=== PATIENT | male | born 1965 | race Caucasian/White ===

== ENCOUNTER 2019-01-30 13:49 | Inpatient (IN) | payer OTHER ==
[2019-01-30 14:12] VITALS: BMI 21.7
--- NOTE | 2019-01-30 17:32 | HP ---
COWS - Scale Resting Pulse: 0= [place] 80 or Below Sweatin= Chills/Flushing Restless Observation: 0= Sits Still Pupil Size: 0= Normal to Room Light Bone or Joint Aches: 2= Severe Diffuse Aches Runny Nose/ Eye Tearin= Runny Nose/Eyes GI Upset > 30mins: 2= Nausea/Diarrhea Tremor Observation: 1= Tremor [place], Not Seen Yawning Observation: 0= None Anxiety or Irritability: 1=Feels Anxious/Irritable Goose Flesh Skin: 0=Smooth Skin COWS Score: 9 CIWA Score Nausea/Vomitin-Mild Nausea/No Vomiting Muscle Tremors: 1-None Visible, but [place] Anxiety: 1-Mildly Anxious Agitation: 0-Normal Activity Paroxysmal Sweats: No Perspiration Orientation: 0-Oriented Tacttile Disturbances: 0-None Auditory Disturbances: 0-None Visual Disturbances: 0-None Headache: 2-Mild CIWA-Ar Total Score: 5 - Admission Criteria OASAS Guidelines: Admission for Medically Managed Detox: Requires at least one of the followin. CIWA greater than 12 2. Seizures within the past 24 hours 3. Delirium tremens within the past 24 hours 4. Hallucinations within the past 24 hours 5. Acute intervention needed for co occurring medical disorder 6. Acute intervention needed for co occurring psychiatric disorder 7. Severe withdrawal that cannot be handled at a lower level of care (continued vomiting, continued diarrhea, abnormal vital signs) requiring intravenous medication and/or fluids 8. Admission ROS [facility] Allergies/Adverse Reactions: Allergies Allergy/AdvReac Type Severity Reaction Status Date / Time No Known Allergies Allergy Verified 01/30/19 14:05 History of Present Illness: pt here requesting detox from etoh and heroin use , claims 4-5 bags heroin daily , + OD "a long time ago , "most recent detox @ [facility] 2 weeks ago and 3-4 x 16 oz beer daily ,deies seizures, blackouts ot tremors . tobacco : 1 ppd PMHX /PSHX : denies PSych : denies Exam Limitations: No Limitations - Ebola screening Have you traveled outside of the country in the last 21 days: No (N) Have you had contact with anyone from an Ebola affected area: No Do you have a fever: No - Review of Systems Constitutional: Loss of Appetite EENT: reports: Other (bifocals) Respiratory: reports: No Symptoms reported Cardiac: reports: No Symptoms Reported GI: reports: Diarrhea, Nausea, Poor Appetite : reports: No Symptoms Reported Musculoskeletal: reports: Other (bodyaches) Integumentary: reports: No Symptoms Reported Neuro: reports: See HPI, Headache Endocrine: reports: No Symptoms Reported Hematology: reports: No Symptoms Reported Psychiatric: reports: Orientated x3, Anxious Patient History - Smoking Cessation Smoking history: Current every day smoker Have you smoked in the past 12 months: Yes Hx Chewing Tobacco Use: No Initiated information on smoking cessation: Yes 'Breaking Loose' booklet given: 01/30/19 - Substances abused Heroin Substance route: Inhalation Frequency: Daily Amount used: 4-5 bags Age of first use: 28 Date of last use: 01/29/19 Alcohol Substance route: Oral Frequency: 3-6 times per week Amount used: 3-4 16 oz beer Age of first use: 53 Date of last use: 01/29/19 Admission Physical Exam BHS - Vital Signs Vital Signs: Vital Signs - 24 hr 01/30/19 14:05 Temperature 98.6 F Pulse Rate 80 Respiratory 18 Rate Blood Pressure 126/78 - Physical General Appearance: Yes: Anxious HEENTM: Yes: EOMI, Normocephalic, Normal Voice Respiratory: Yes: Chest Non-Tender, Lungs Clear, Normal Breath Sounds, No Respiratory Distress, No Accessory Muscle Use Neck: Yes: Trachea in good position Cardiology: Yes: Regular Rhythm, Regular Rate, S1, S2 Abdominal: Yes: Non Tender, Soft Musculoskeletal: Yes: Gait Steady Extremities: Yes: Normal Inspection, Non-Tender Neurological: Yes: Fully Oriented, Alert, Motor Strength 5/5, Normal Mood/Affect Integumentary: Yes: Warm - Diagnostic (1) Opioid use Current Visit: Yes Status: Acute Breathalyzer - Breathalyzer Breathalyzer: 0 Urine Drug Screen - Test Device Lot number: [id number] Expiration date: 09/27/20 - Control Is test valid?: Yes - Results Drug screen NEGATIVE: No Urine drug screen results: MOP-Opiates, BZO-Benzodiazepines Inpatient Rehab Admission - Rehab Decision to Admit Inpatient rehab admission?: No
[2019-01-30] MEDS ORDERED: NICOTINE POLACRILEX 2 MG GUM BUC PRN (17:51)
[2019-01-30] MEDS ORDERED: METHOCARBAMOL 500 MG TABLET PO PRN (17:51)
[2019-01-30] MEDS ORDERED: MAGNESIUM CITRATE 300 ML BOTTLE PO PRN (17:51)
[2019-01-30] MEDS ORDERED: MAG HYDROX/AL HYDROX/SIMETH 30 ML UNIT-DOSE CUP PO PRN (17:51)
[2019-01-30] MEDS ORDERED: MAGNESIUM HYDROX 2400MG/30ML ORAL SUSPENSION 30 ML CUP PO PRN (17:51)
[2019-01-30] MEDS ORDERED: BISMUTH SUBSALICYLATE 524 MG/30 ML UD PO PRN (17:51)
[2019-01-30] MEDS ORDERED: hydrOXYzine PAMOATE 25 MG CAPSULE (FP) PO PRN (17:51)
[2019-01-30] MEDS ORDERED: MENTHOL/PHENOL 1 EACH UD MM PRN (17:51)
[2019-01-30] MEDS ORDERED: ACETAMINOPHEN 325 MG TABLET (FP) PO PRN ×2 (17:51)
[2019-01-30] MEDS ORDERED: IBUPROFEN 400 MG TABLET (FP) PO PRN (17:51)
[2019-01-30] MEDS ORDERED: cloNIDine HCL 0.1 MG TABLET PO PRN (18:10)
[2019-01-30] MEDS ORDERED: clonazePAM 0.5 MG TABLET PO PRN (18:10)
[2019-01-30] MEDS ORDERED: METHADONE HCL 10 MG TABLET (FOR DETOX USE ONLY) PO ONE (18:20)
[2019-01-30] MEDS: THIAMINE HCL 100 MG TABLET (FP) PO SCH (22:14)
[2019-01-30] MEDS: MELATONIN 5 MG TABLETS PO PRN (22:15)
[2019-01-31] MEDS ORDERED: METHADONE HCL 5 MG TABLET (FOR DETOX USE ONLY) PO ONE (10:00)
--- NOTE | 2019-01-31 10:20 | PN ---
BHS COWS - Scale Resting Pulse: 1= [place] 81-100 Sweatin= No chills or Flushing Restless Observation: 1= Difficult to Sit Still Pupil Size: 1= Pupils >than Normal Bone or Joint Aches: 2= Severe Diffuse Aches Runny Nose/ Eye Tearin= Nasal Congestion GI Upset > 30mins: 2= Nausea/Diarrhea Tremor Observation of Outstretched Hands: 2= Slight Tremor Visible Yawning Observation: 1= 1-2x During Session Anxiety or Irritability: 2=Irritable/Anxious Goose Flesh Skin: 0=Smooth Skin COWS Score: 13 S Progress Note (SOAP) Subjective: alert,irritable,anxious,interrupted sleep,pain in the body and back Objective: 01/31/19 10:18 Vital Signs Temperature 98.3 F 01/31/19 09:19 Pulse Rate 82 01/31/19 09:19 Respiratory Rate 18 01/31/19 09:19 Blood Pressure 102/62 01/31/19 09:19 O2 Sat by Pulse Oximetry (%) 01/31/19 10:19 labs pending Assessment: 01/31/19 10:19 withdrawal symptom Plan: continue methadone regimen
[2019-01-31] MEDS: NICOTINE 14 MG/24 HOURS TOPICAL PATCH TD SCH (10:22)
[2019-01-31] MEDS: PRENATAL VITAMINS W/ FOLIC ACID TABLET (FP) PO SCH (10:22)
--- NOTE | 2019-01-31 10:36 | EKG ---
Test Reason : Blood Pressure : / mmHG Vent. Rate : 061 BPM Atrial Rate : 061 BPM P-R Int : 132 ms QRS Dur : 092 ms QT Int : 412 ms P-R-T Axes : 078 096 065 degrees QTc Int : 414 ms NORMAL SINUS RHYTHM RIGHTWARD AXIS BORDERLINE ECG NO PREVIOUS ECGS AVAILABLE Confirmed by MONE SEGOVIA, PAULINO ([id number]) on 01/31/2019 10:35:53 AM Referred By: Confirmed By:PAULINO SHORE MD
[2019-01-31 10:37] LABS: HEMATOCRIT 53.7 % (35.4-49); HEMOGLOBIN 17.7 GM/dL (11.7-16.9); MCH 28.9 pg (25.7-33.7); MCHC 32.9 g/dl (32.0-35.9); MEAN CELL VOLUME 87.8 fl (80-96); MEAN PLT VOLUME 9.6 fl (7.5-11.1); PLATELET COUNT 198 K/MM3 (134-434); RBC 6.12 M/mm3 (4.00-5.60); RDW 14.5 % (11.9-15.9)
[2019-01-31 10:49] LABS: ALBUMIN 3.5 g/dl (3.4-5.0); BILIRUBIN,TOTAL 1.1 mg/dL (0.2-1); BLOOD UREA NITROGEN 16.6 mg/dL (7-18); CALCIUM 9.7 mg/dL (8.5-10.1); CREATININE 1.1 mg/dL (0.55-1.3); POTASSIUM 4.9 mmol/L (3.5-5.1); TOT PROT 6.4 g/dl (6.4-8.2)
[2019-01-31] MEDS: MELATONIN 5 MG TABLETS PO PRN (22:15)
[2019-01-31] MEDS: THIAMINE HCL 100 MG TABLET (FP) PO SCH (22:15)
[2019-02-01] MEDS: PRENATAL VITAMINS W/ FOLIC ACID TABLET (FP) PO SCH (09:55)
[2019-02-01] MEDS: NICOTINE 14 MG/24 HOURS TOPICAL PATCH TD SCH (09:55)
[2019-02-01] MEDS ORDERED: METHADONE HCL 10 MG TABLET (FOR DETOX USE ONLY) PO ONE (10:00)
--- NOTE | 2019-02-01 12:05 | PN ---
BHS COWS - Scale Resting Pulse: 0= [place] 80 or Below Sweatin= No chills or Flushing Restless Observation: 1= Difficult to Sit Still Pupil Size: 1= Pupils >than Normal Bone or Joint Aches: 1= Mild Discomfort Runny Nose/ Eye Tearin= Nasal Congestion GI Upset > 30mins: 1= Stomach Cramp Tremor Observation of Outstretched Hands: 1= Tremor Johnson, Not Seen Yawning Observation: 0= None Anxiety or Irritability: 1=Feels Anxious/Irritable Goose Flesh Skin: 0=Smooth Skin COWS Score: 7 BHS Progress Note (SOAP) Subjective: alert,irritable,anxious,interrupted sleep,pain in the body Objective: 02/01/19 12:07 Vital Signs Temperature 96.9 F L 02/01/19 09:34 Pulse Rate 65 02/01/19 09:34 Respiratory Rate 16 02/01/19 09:34 Blood Pressure 111/66 02/01/19 09:34 O2 Sat by Pulse Oximetry (%) Assessment: 02/01/19 12:07 withdrawal symptom Plan: continue detox methadone regimen,discharge in am
[2019-02-01] MEDS: THIAMINE HCL 100 MG TABLET (FP) PO SCH (22:52)
[2019-02-01] MEDS: MELATONIN 5 MG TABLETS PO PRN (23:04)
[2019-02-02] MEDS ORDERED: METHADONE HCL 5 MG TABLET (FOR DETOX USE ONLY) PO ONE (06:00)
--- NOTE | 2019-02-02 08:38 | DS ---
[facility] Detox Discharge Summary Admission Date: 01/30/19 Discharge Date: 02/02/19 - History Present History: Opioid Dependence - Physical Exam Results Vital Signs: Vital Signs Temperature 98.1 F 02/02/19 05:57 Pulse Rate 59 L 02/02/19 05:57 Respiratory Rate 18 02/02/19 05:57 Blood Pressure 102/58 L 02/02/19 05:57 O2 Sat by Pulse Oximetry (%) Pertinent Admission Physical Exam Findings: pt arrived in withdrawals Vital Signs Temperature 98.1 F 02/02/19 05:57 Pulse Rate 59 L 02/02/19 05:57 Respiratory Rate 18 02/02/19 05:57 Blood Pressure 102/58 L 02/02/19 05:57 O2 Sat by Pulse Oximetry (%) Laboratory Tests 01/31/19 01/31/19 01/31/19 08:00 08:00 08:00 WBC 5.0 RBC 6.12 H Hgb 17.7 H Hct 53.7 H MCV 87.8 MCH 28.9 MCHC 32.9 RDW 14.5 Plt Count 198 MPV 9.6 Sodium 141 Potassium 4.9 Chloride 108 H Carbon Dioxide 28 Anion Gap 5 L BUN 16.6 Creatinine 1.1 Est GFR (CKD-EPI)AfAm 87.74 Est GFR (CKD-EPI)NonAf 75.70 Random Glucose 83 Calcium 9.7 Total Bilirubin 1.1 H AST 23 ALT 37 Alkaline Phosphatase 90 Total Protein 6.4 Albumin 3.5 RPR Titer Nonreactive pt is aaox3 ambulating no acute distress no s/s of withdrawals - Treatment Hospital Course: Detox Protocol Followed, Detoxed Safely, Responded well, Discharged Condition Good, Rehab Referral Accepted Patient has Accepted a Rehab Referral to: pt referred to inpatient rehab - Medication Discharge Medications: Ambulatory Orders NK [No Known Home Medication] 01/30/19 - Diagnosis (1) Opioid dependence with withdrawal Current Visit: Yes Status: Chronic - AMA Did Patient Leave Against Medical Advice: No
[2019-02-02] MEDS: NICOTINE 14 MG/24 HOURS TOPICAL PATCH TD SCH (10:19)
[2019-02-02] MEDS: PRENATAL VITAMINS W/ FOLIC ACID TABLET (FP) PO SCH (10:19)
[2019-02-02 13:22] VITALS: PULSE 62
[2019-02-02 16:59] VITALS: BP 135/78; TEMP 98.6
== END 2019-02-02 17:41 | disposition other institution (70) | DRG 773 ==
LOC: EDBD → YASAS 13:49 → Y6N 18:05
PROVIDERS: ADMIT Allergy & Immunology; ATTEND Allergy & Immunology
PROC: HZ2ZZZZ Detoxification Services for Substance Abuse Treatment (ICD-10-PCS; principal; 2019-01-30)
DX: F11.23 Opioid dependence with withdrawal (principal); F10.230 Alcohol dependence with withdrawal, uncomplicated; F17.210 Nicotine dependence, cigarettes, uncomplicated
CPT/HCPCS: 36415; 80053; 85027; 86593; 93005; 93010

== ENCOUNTER 2019-02-02 18:22 | Inpatient (IN) | payer OTHER ==
--- NOTE | 2019-02-02 11:33 | HP ---
[facility] Rehab Assess/Revision - Admission History Admitted to Rehab from: [facility] - Findings Detox History & Physical reviewed: Yes Concur with findings: Yes Inpatient Rehab Admission - Rehab Decision to Admit Inpatient rehab admission?: Yes - Initial Determination Are CD services needed?: Yes Free of communicable disease: Yes Not in need of hospitalization: Yes - Rehab Admission Criteria Previous failed treatment: Yes Poor recovery environment: Yes Comorbidities: Yes Lacks judgement: Yes Patient is meeting Inpatient Rehab admission criteria:: Yes
[~2019-02-02 18:22] MED LIST: ACETAMINOPHEN 325 MG TABLET (FP) PO PRN; IBUPROFEN 400 MG TABLET (FP) PO PRN; LOPERAMIDE HCL 2 MG CAPSULE PO PRN; MAG HYDROX/AL HYDROX/SIMETH 30 ML UNIT-DOSE CUP PO PRN; MAGNESIUM CITRATE 300 ML BOTTLE PO PRN; MAGNESIUM HYDROX 2400MG/30ML ORAL SUSPENSION 30 ML CUP PO PRN; MENTHOL/PHENOL 1 EACH UD MM PRN; NICOTINE POLACRILEX 4 MG GUM BUC PRN; P-EPHED 60MG/TRIPROLIDI 2.5MG TABLET PO PRN; guaiFENesin 200 MG/10 ML 10 ML UNIT-DOSE CUPS PO PRN
[2019-02-02] MEDS: THIAMINE HCL 100 MG TABLET (FP) PO SCH (21:39)
[2019-02-02] MEDS: MELATONIN 5 MG TABLETS PO PRN (21:39)
[2019-02-03] MEDS: PRENATAL VITAMINS W/ FOLIC ACID TABLET (FP) PO SCH (10:28)
[2019-02-03] MEDS: NICOTINE 21 MG/24 HOURS TOPICAL PATCH TD SCH (10:28)
[2019-02-03] MEDS: THIAMINE HCL 100 MG TABLET (FP) PO SCH (21:23)
[2019-02-03] MEDS: MELATONIN 5 MG TABLETS PO PRN (21:23)
[2019-02-04] MEDS: PRENATAL VITAMINS W/ FOLIC ACID TABLET (FP) PO SCH (10:21)
[2019-02-04] MEDS: NICOTINE 21 MG/24 HOURS TOPICAL PATCH TD SCH (10:22)
[2019-02-04] MEDS: MELATONIN 5 MG TABLETS PO PRN (21:19)
[2019-02-04] MEDS: THIAMINE HCL 100 MG TABLET (FP) PO SCH (21:19)
[2019-02-05] MEDS: PRENATAL VITAMINS W/ FOLIC ACID TABLET (FP) PO SCH (10:07)
[2019-02-05] MEDS: NICOTINE 21 MG/24 HOURS TOPICAL PATCH TD SCH (10:08)
--- NOTE | 2019-02-05 13:47 | PN ---
S Progress Note Note: pt is a 53 y/o male with a hx of RUCHI admitted to rehab from [address] [place] [address]. Vital Signs - 24 hr 02/05/19 02/05/19 03:30 07:17 Temperature 98.1 F Pulse Rate 81 Respiratory 18 18 Rate Blood Pressure 129/75 Alert o x 3 nad oob ambulating with steady gait and visible on the unit. A/P new rehab pt s/p detox Maintain safety continue rehab
[2019-02-05] MEDS: MELATONIN 5 MG TABLETS PO PRN (21:27)
[2019-02-05] MEDS: THIAMINE HCL 100 MG TABLET (FP) PO SCH (21:27)
[2019-02-06] MEDS: PRENATAL VITAMINS W/ FOLIC ACID TABLET (FP) PO SCH (10:29)
[2019-02-06] MEDS: NICOTINE 21 MG/24 HOURS TOPICAL PATCH TD SCH (10:29)
[2019-02-06] MEDS: THIAMINE HCL 100 MG TABLET (FP) PO SCH (21:29)
[2019-02-06] MEDS: MELATONIN 5 MG TABLETS PO PRN (21:29)
[2019-02-06] MEDS: hydrOXYzine PAMOATE 50 MG CAPSULE (FP) PO PRN (21:29)
[2019-02-07] MEDS: PRENATAL VITAMINS W/ FOLIC ACID TABLET (FP) PO SCH (10:48)
[2019-02-07] MEDS: NICOTINE 21 MG/24 HOURS TOPICAL PATCH TD SCH (10:48)
[2019-02-07] MEDS: MELATONIN 5 MG TABLETS PO PRN (21:31)
[2019-02-07] MEDS: THIAMINE HCL 100 MG TABLET (FP) PO SCH (21:31)
[2019-02-07] MEDS: hydrOXYzine PAMOATE 50 MG CAPSULE (FP) PO PRN (21:31)
[2019-02-08] MEDS: NICOTINE 21 MG/24 HOURS TOPICAL PATCH TD SCH (10:56)
[2019-02-08] MEDS: PRENATAL VITAMINS W/ FOLIC ACID TABLET (FP) PO SCH (10:56)
[2019-02-08] MEDS: hydrOXYzine PAMOATE 50 MG CAPSULE (FP) PO PRN (21:46)
[2019-02-08] MEDS: MELATONIN 5 MG TABLETS PO PRN (21:46)
[2019-02-08] MEDS: THIAMINE HCL 100 MG TABLET (FP) PO SCH (21:46)
[2019-02-09] MEDS: NICOTINE 21 MG/24 HOURS TOPICAL PATCH TD SCH (10:35)
[2019-02-09] MEDS: PRENATAL VITAMINS W/ FOLIC ACID TABLET (FP) PO SCH (10:35)
[2019-02-09] MEDS: THIAMINE HCL 100 MG TABLET (FP) PO SCH (21:28)
[2019-02-09] MEDS: hydrOXYzine PAMOATE 50 MG CAPSULE (FP) PO PRN (21:30)
[2019-02-09] MEDS: MELATONIN 5 MG TABLETS PO PRN (21:30)
[2019-02-10] MEDS: NICOTINE 21 MG/24 HOURS TOPICAL PATCH TD SCH (09:48)
[2019-02-10] MEDS: PRENATAL VITAMINS W/ FOLIC ACID TABLET (FP) PO SCH (09:48)
[2019-02-10] MEDS: THIAMINE HCL 100 MG TABLET (FP) PO SCH (23:21)
[2019-02-11] MEDS: NICOTINE 21 MG/24 HOURS TOPICAL PATCH TD SCH (10:04)
[2019-02-11] MEDS: PRENATAL VITAMINS W/ FOLIC ACID TABLET (FP) PO SCH (10:04)
[2019-02-11] MEDS: MELATONIN 5 MG TABLETS PO PRN (21:32)
[2019-02-11] MEDS: THIAMINE HCL 100 MG TABLET (FP) PO SCH (21:32)
[2019-02-11] MEDS: hydrOXYzine PAMOATE 50 MG CAPSULE (FP) PO PRN (21:32)
[2019-02-12] MEDS: NICOTINE 21 MG/24 HOURS TOPICAL PATCH TD SCH (10:38)
[2019-02-12] MEDS: PRENATAL VITAMINS W/ FOLIC ACID TABLET (FP) PO SCH (10:38)
[2019-02-12] MEDS: hydrOXYzine PAMOATE 50 MG CAPSULE (FP) PO PRN (21:19)
[2019-02-12] MEDS: MELATONIN 5 MG TABLETS PO PRN (21:19)
[2019-02-12] MEDS: THIAMINE HCL 100 MG TABLET (FP) PO SCH (21:19)
[2019-02-13] MEDS: PRENATAL VITAMINS W/ FOLIC ACID TABLET (FP) PO SCH (10:18)
[2019-02-13] MEDS: NICOTINE 21 MG/24 HOURS TOPICAL PATCH TD SCH (10:18)
[2019-02-13] MEDS: THIAMINE HCL 100 MG TABLET (FP) PO SCH (21:29)
[2019-02-13] MEDS: MELATONIN 5 MG TABLETS PO PRN (21:29)
[2019-02-13] MEDS: hydrOXYzine PAMOATE 50 MG CAPSULE (FP) PO PRN (21:29)
[2019-02-14] MEDS: PRENATAL VITAMINS W/ FOLIC ACID TABLET (FP) PO SCH (10:29)
[2019-02-14] MEDS: NICOTINE 21 MG/24 HOURS TOPICAL PATCH TD SCH (10:30)
[2019-02-14] MEDS: MELATONIN 5 MG TABLETS PO PRN (21:32)
[2019-02-14] MEDS: THIAMINE HCL 100 MG TABLET (FP) PO SCH (21:32)
[2019-02-14] MEDS: hydrOXYzine PAMOATE 50 MG CAPSULE (FP) PO PRN (21:33)
[2019-02-15] MEDS ORDERED: COLLOIDAL OATMEAL 1 BAR EACH TP PRN (10:26)
[2019-02-15] MEDS: NICOTINE 21 MG/24 HOURS TOPICAL PATCH TD SCH (10:43)
[2019-02-15] MEDS: PRENATAL VITAMINS W/ FOLIC ACID TABLET (FP) PO SCH (10:43)
[2019-02-15] MEDS: MINERAL OIL/PETROLAT/WATER TOPICAL CREAM 113 GM JAR TP SCH (11:39)
[2019-02-15] MEDS: THIAMINE HCL 100 MG TABLET (FP) PO SCH (21:28)
[2019-02-15] MEDS: MELATONIN 5 MG TABLETS PO PRN (21:28)
[2019-02-15] MEDS: hydrOXYzine PAMOATE 50 MG CAPSULE (FP) PO PRN (21:29)
[2019-02-16] MEDS: NICOTINE 21 MG/24 HOURS TOPICAL PATCH TD SCH (10:20)
[2019-02-16] MEDS: PRENATAL VITAMINS W/ FOLIC ACID TABLET (FP) PO SCH (10:20)
[2019-02-16] MEDS: MINERAL OIL/PETROLAT/WATER TOPICAL CREAM 113 GM JAR TP SCH (10:21)
[2019-02-16] MEDS: hydrOXYzine PAMOATE 50 MG CAPSULE (FP) PO PRN (21:29)
[2019-02-16] MEDS: THIAMINE HCL 100 MG TABLET (FP) PO SCH (21:29)
[2019-02-17] MEDS: NICOTINE 21 MG/24 HOURS TOPICAL PATCH TD SCH (10:38)
[2019-02-17] MEDS: PRENATAL VITAMINS W/ FOLIC ACID TABLET (FP) PO SCH (10:38)
[2019-02-17] MEDS: MINERAL OIL/PETROLAT/WATER TOPICAL CREAM 113 GM JAR TP SCH (10:39)
[2019-02-17] MEDS: THIAMINE HCL 100 MG TABLET (FP) PO SCH (21:27)
[2019-02-18] MEDS: MINERAL OIL/PETROLAT/WATER TOPICAL CREAM 113 GM JAR TP SCH (10:00)
[2019-02-18] MEDS: NICOTINE 21 MG/24 HOURS TOPICAL PATCH TD SCH (10:00)
[2019-02-18] MEDS: PRENATAL VITAMINS W/ FOLIC ACID TABLET (FP) PO SCH (10:01)
[2019-02-18] MEDS: THIAMINE HCL 100 MG TABLET (FP) PO SCH (22:09)
[2019-02-19] MEDS: PRENATAL VITAMINS W/ FOLIC ACID TABLET (FP) PO SCH (10:26)
[2019-02-19] MEDS: NICOTINE 21 MG/24 HOURS TOPICAL PATCH TD SCH (10:26)
[2019-02-19] MEDS: MINERAL OIL/PETROLAT/WATER TOPICAL CREAM 113 GM JAR TP SCH (10:27)
--- NOTE | 2019-02-19 14:56 | DS ---
[facility] Rehab Discharge Summary - [facility] Rehab Discharge Summary Admission Date: 02/02/19 Discharge Date: 02/19/19 - History Present History: Alcohol dependence, Opioid dependence - Discharge Physical Exam Vital Signs: Vital Signs Temperature 97.9 F 02/19/19 07:29 Pulse Rate 81 02/19/19 07:29 Respiratory Rate 18 02/19/19 07:29 Blood Pressure 139/78 02/19/19 07:29 O2 Sat by Pulse Oximetry (%) Ambulatory Orders NK [No Known Home Medication] 01/30/19 Pertinent Admission Physical Exam Findings: Patient admitted to detox for etoh and heroin use on 01/30/19. Admitted to rehab on 02/02/19 and scheduled for completion 02/20/19. Has hx of sniffing 4- 5 bags heroin daily. + 1 overdose years ago. . tobacco : 1 ppd PMHX /PSHX : denies PSych : denies - Treatment Discharge Condition: Outpatient referral accepted Hospital Course: Patient completes rehab tomorrow, 02/20/19 for alcohol and opiod dependence. Patient states he accomplished all rehab goals, is able to identify triggers and positive coping mechanisms. Patient is medically stable at this time and denies SI/HI. Aftercare arranged for [facility] and he is to attend AA/NA group meetings to help maintain sobriety. Vital Signs Temperature 97.9 F 02/19/19 07:29 Pulse Rate 81 02/19/19 07:29 Respiratory Rate 18 02/19/19 07:29 Blood Pressure 139/78 02/19/19 07:29 O2 Sat by Pulse Oximetry (%) ROS: denies anxiety, restlessness, opiod/etoh cravings, sweating and chills. PE: alert and oriented x 3 skin warm and dry in nad ext no tremors amb ad lolis denies si/hi A/P: Opiod/ETOH dependence Patient for discharge 02/20/19 - Medication Discharge Medications: Ambulatory Orders NK [No Known Home Medication] 01/30/19 - Medication-Assisted Treatment (MAT) Medication-Assisted Treatment (MAT): No - Discharge Instructions Diet, activity, other medical instructions: Diet: reg as tolerated Activity: as tolerated Other medical instructions: follow up with pcp as recommended. - Follow-up Referral Minutes to complete discharge: 30 - AMA Did Patient Leave Against Medical Advice: No
[2019-02-19] MEDS: THIAMINE HCL 100 MG TABLET (FP) PO SCH (21:15)
[2019-02-20 06:50] VITALS: BP 118/80; PULSE 92; TEMP 98.1
== END 2019-02-20 09:21 | disposition home or self-care (01) | DRG 772 ==
LOC: YASAS 18:22 → Y5N 18:23
PROVIDERS: ADMIT Neuromusculoskeletal Medicine & OMM; ATTEND Neuromusculoskeletal Medicine & OMM
PROC: HZ42ZZZ Group Counseling for Substance Abuse Treatment, Cognitive-Behavioral (ICD-10-PCS; principal; 2019-02-02)
DX: F11.20 Opioid dependence, uncomplicated (principal); F10.20 Alcohol dependence, uncomplicated; F17.210 Nicotine dependence, cigarettes, uncomplicated

== ENCOUNTER 2019-04-26 14:48 | Inpatient (IN) | payer OTHER ==
--- NOTE | 2019-04-26 16:52 | BHS.RME ---
Substance Use & Tx History - Last Treatment Date of last treatment: 01/2019 Where was last treatment: Rehab Physical/Psych/Mental Status - Behavior General Behavior: Increased activity (restlessness, agitation) - Cooperativeness Cooperativeness: Cooperative - Thinking Thought Processes: Logical - Physical Health Problems Is patient presently having any pain?: Yes (bodyaches ) Does patient presently have any injuries (include location): No Does patient currently have a fever: No COWS - Scale Resting Pulse: 1= [place] 81-100 Sweatin= Chills/Flushing Restless Observation: 3= Extraneous Movement Pupil Size: 1= Pupils >than Normal Bone or Joint Aches: 2= Severe Diffuse Aches Runny Nose/ Eye Tearin= None GI Upset > 30mins: 3= Vomiting/Diarrhea Tremor Observation: 0= None Yawning Observation: 0= None Anxiety or Irritability: 2=Irritable/Anxious Goose Flesh Skin: 0=Smooth Skin COWS Score: 13 CIWA Nausea/Vomitin Muscle Tremors: 1-None Visible, but [place] Anxiety: 4-Mod. Anxious/Guarded Agitation: 4-Moderately Restless Paroxysmal Sweats: 2 Orientation: 0-Oriented Tacttile Disturbances: 0-None Auditory Disturbances: 0-None Visual Disturbances: 0-None Headache: 0-None Present CIWA-Ar Total Score: 13
--- NOTE | 2019-04-26 17:05 | HP ---
COWS - Scale Resting Pulse: 1= [place] 81-100 Sweatin= Chills/Flushing Restless Observation: 3= Extraneous Movement Pupil Size: 1= Pupils >than Normal Bone or Joint Aches: 2= Severe Diffuse Aches Runny Nose/ Eye Tearin= None GI Upset > 30mins: 3= Vomiting/Diarrhea Tremor Observation: 0= None Yawning Observation: 0= None Anxiety or Irritability: 2=Irritable/Anxious Goose Flesh Skin: 0=Smooth Skin COWS Score: 13 CIWA Score Nausea/Vomitin Muscle Tremors: 1-None Visible, but [place] Anxiety: 4-Mod. Anxious/Guarded Agitation: 4-Moderately Restless Paroxysmal Sweats: 2 Orientation: 0-Oriented Tacttile Disturbances: 0-None Auditory Disturbances: 0-None Visual Disturbances: 0-None Headache: 0-None Present CIWA-Ar Total Score: 13 - Admission Criteria OASAS Guidelines: Admission for Medically Managed Detox: Requires at least one of the followin. CIWA greater than 12 2. Seizures within the past 24 hours 3. Delirium tremens within the past 24 hours 4. Hallucinations within the past 24 hours 5. Acute intervention needed for co occurring medical disorder 6. Acute intervention needed for co occurring psychiatric disorder 7. Severe withdrawal that cannot be handled at a lower level of care (continued vomiting, continued diarrhea, abnormal vital signs) requiring intravenous medication and/or fluids 8. Admitting History and Physical - Smoking History Smoking history: Current every day smoker Have you smoked in the past 12 months: Yes Aproximately how many cigarettes per day: 20 Admission [facility] Allergies/Adverse Reactions: Allergies Allergy/AdvReac Type Severity Reaction Status Date / Time No Known Allergies Allergy Verified 04/26/19 17:19 History of Present Illness: pt here requesting detox from etoh and heroin use , claims 7-9 bags heroin daily, and 3-4 x 16 oz beer daily ,denies seizures, blackouts or tremors . tobacco : 1 ppd PMHX /PSHX : denies PSych : denies Exam Limitations: Clinical Condition - Review of Systems Constitutional: Loss of Appetite, Unexplained wgt Loss EENT: reports: No Symptoms Reported, Other (reading glasses) Respiratory: reports: No Symptoms reported Cardiac: reports: No Symptoms Reported GI: reports: Constipated, Nausea, Poor Appetite, Vomiting : reports: No Symptoms Reported Musculoskeletal: reports: No Symptoms Reported Integumentary: reports: No Symptoms Reported Neuro: reports: See HPI Endocrine: reports: No Symptoms Reported Hematology: reports: No Symptoms Reported Psychiatric: reports: Agitated, Anxious, Disorientated Patient History - Patient Medical History Hx Asthma: No Hx Chronic Obstructive Pulmonary Disease (COPD): No Hx Cardiac Disorders: No Hx Hypertension: No Hx Seizures: No Hx Diabetes: No Hx Gastrointestinal Disorders: No Hx Genitourinary Disorders: No Hx Sexually Transmitted Disorders: No Hx Renal Disease (ESRD): No Hx Depression: No Hx Suicide Attempt: No Hx Schizophrenia: No - Patient Surgical History Past Surgical History: No Hx Neurologic Surgery: No Hx Cataract Extraction: No Hx Cardiac Surgery: No Hx Lung Surgery: No Hx Breast Surgery: No Hx Breast Biopsy: No Hx Abdominal Surgery: No Hx Appendectomy: No Hx Cholecystectomy: No Hx Genitourinary Surgery: No Hx Section: No Hx Orthopedic Surgery: No Anesthesia Reaction: No - PPD History Date: 02/01/19 Results: 2 mm - Smoking Cessation Smoking history: Current every day smoker Have you smoked in the past 12 months: Yes Aproximately how many cigarettes per day: 20 Hx Chewing Tobacco Use: No Initiated information on smoking cessation: Yes 'Breaking Loose' booklet given: 04/26/19 - Substances abused Heroin Substance route: Inhalation Frequency: Daily Amount used: 1 BUNDLE Age of first use: 28 Date of last use: 04/25/19 Alcohol Substance route: Oral Frequency: Daily Amount used: 16-16oz beers Age of first use: 28 Date of last use: 04/25/19 Admission Physical Exam [facility] - Physical General Appearance: Yes: Mild Distress, Anxious HEENTM: Yes: EOMI, Hearing grossly Normal, Normocephalic, Normal Voice Respiratory: Yes: Chest Non-Tender, Lungs Clear, Normal Breath Sounds, No Respiratory Distress, No Accessory Muscle Use Neck: Yes: No masses,lesions,Nodules, Trachea in good position Cardiology: Yes: Regular Rhythm, Regular Rate, S1, S2 Abdominal: Yes: Non Tender, Soft Musculoskeletal: Yes: Gait Steady Extremities: Yes: Normal Range of Motion, Non-Tender Neurological: Yes: Alert, Motor Strength 5/5 Integumentary: Yes: Warm - Diagnostic (1) Opioid dependence with withdrawal Current Visit: Yes Status: Chronic (2) Alcohol use disorder Current Visit: Yes Status: Chronic Breathalyzer - Breathalyzer Breathalyzer: 0 Urine Drug Screen - Test Device Lot number: [id number] Expiration date: 01/27/21 - Control Is test valid?: Yes - Results Drug screen NEGATIVE: No Urine drug screen results: FEN-Fentanyl, MOP-Opiates, BZO-Benzodiazepines Inpatient Rehab Admission - Rehab Decision to Admit Inpatient rehab admission?: No
[2019-04-26 17:23] VITALS: BMI 21.6
[2019-04-26] MEDS ORDERED: MAG HYDROX/AL HYDROX/SIMETH 30 ML UNIT-DOSE CUP PO PRN (17:32)
[2019-04-26] MEDS ORDERED: ACETAMINOPHEN 325 MG TABLET (FP) PO PRN ×2 (17:32)
[2019-04-26] MEDS ORDERED: IBUPROFEN 400 MG TABLET (FP) PO PRN (17:32)
[2019-04-26] MEDS ORDERED: hydrOXYzine PAMOATE 25 MG CAPSULE (FP) PO PRN (17:32)
[2019-04-26] MEDS ORDERED: MENTHOL/PHENOL 1 EACH UD MM PRN (17:32)
[2019-04-26] MEDS ORDERED: MAGNESIUM HYDROX 2400MG/30ML ORAL SUSPENSION 30 ML CUP PO PRN (17:32)
[2019-04-26] MEDS ORDERED: MAGNESIUM CITRATE 300 ML BOTTLE PO PRN (17:32)
[2019-04-26] MEDS ORDERED: BISMUTH SUBSALICYLATE 524 MG/30 ML UD PO PRN (17:32)
[2019-04-26] MEDS ORDERED: METHOCARBAMOL 500 MG TABLET PO PRN (17:32)
[2019-04-26] MEDS ORDERED: chlordiazePOXIDE HCL 10 MG CAPSULE PO PRN (17:33)
[2019-04-26] MEDS ORDERED: METHADONE HCL 10 MG TABLET (FOR DETOX USE ONLY) PO ONE (18:00)
[2019-04-26] MEDS: THIAMINE HCL 100 MG TABLET (FP) PO SCH (22:28)
[2019-04-26] MEDS: chlordiazePOXIDE HCL 25 MG CAPSULE PO SCH (22:28)
[2019-04-26] MEDS: MELATONIN 5 MG TABLETS PO PRN (22:28)
[2019-04-27] MEDS: chlordiazePOXIDE HCL 25 MG CAPSULE PO SCH ×3 (05:12→22:20)
[2019-04-27] MEDS ORDERED: METHADONE HCL 5 MG TABLET (FOR DETOX USE ONLY) PO ONE (10:00)
[2019-04-27] MEDS: PRENATAL VITAMINS W/ FOLIC ACID TABLET (FP) PO SCH (10:07)
[2019-04-27 11:22] LABS: HEMATOCRIT 47.7 % (35.4-49); MCH 29.5 pg (25.7-33.7); MCHC 33.6 g/dl (32.0-35.9); MEAN CELL VOLUME 87.6 fl (80-96); MEAN PLT VOLUME 10.1 fl (7.5-11.1); PLATELET COUNT 207 K/MM3 (134-434); RBC 5.44 M/mm3 (4.00-5.60); RDW 14.4 % (11.9-15.9); WHITE BLOOD COUNT 9.3 K/mm3 (4.0-10.0)
[2019-04-27 11:34] LABS: ALBUMIN 3.8 g/dl (3.4-5.0); BLOOD UREA NITROGEN 22.6 mg/dL (7-18); CALCIUM 8.6 mg/dL (8.5-10.1); POTASSIUM 4.7 mmol/L (3.5-5.1)
[2019-04-27 12:06] LABS: BILIRUBIN,TOTAL 0.7 mg/dL (0.2-1); CREATININE 1.4 mg/dL (0.55-1.3); TOT PROT 6.6 g/dl (6.4-8.2)
--- NOTE | 2019-04-27 13:06 | PN ---
[facility] CIWA - CIWA Score Nausea/Vomitin-No Nausea/No Vomiting Muscle Tremors: None Anxiety: 3 Agitation: 1-Slight > Activity Paroxysmal Sweats: 2 Orientation: 0-Oriented Tacttile Disturbances: 0-None Auditory Disturbances: 0-None Visual Disturbances: 0-None Headache: 0-None Present CIWA-Ar Total Score: 6 S COWS - Scale Resting Pulse: 0= [place] 80 or Below Sweatin=Flushed/Facial Moisture Restless Observation: 0= Sits Still Pupil Size: 0= Normal to Room Light Bone or Joint Aches: 0= None Runny Nose/ Eye Tearin= None GI Upset > 30mins: 0= None Tremor Observation of Outstretched Hands: 0= None Yawning Observation: 0= None Anxiety or Irritability: 2=Irritable/Anxious Goose Flesh Skin: 0=Smooth Skin COWS Score: 4 S Progress Note (SOAP) Subjective: Asking for Ensure Objective: 04/27/19 13:03 Laboratory Tests 04/27/19 04/27/19 04/27/19 08:00 08:00 08:00 WBC 9.3 RBC 5.44 Hgb 16.0 Hct 47.7 MCV 87.6 MCH 29.5 MCHC 33.6 RDW 14.4 Plt Count 207 MPV 10.1 Sodium 141 Potassium 4.7 Chloride 109 H Carbon Dioxide 29 Anion Gap 3 L BUN 22.6 H Creatinine 1.4 H Est GFR (CKD-EPI)AfAm 65.55 Est GFR (CKD-EPI)NonAf 56.56 Random Glucose 57 L Calcium 8.6 Total Bilirubin 0.7 AST 30 ALT 35 Alkaline Phosphatase 87 Total Protein 6.6 Albumin 3.8 RPR Titer Nonreactive Vital Signs Temperature 97.4 F L 04/27/19 08:50 Pulse Rate 71 04/27/19 08:50 Respiratory Rate 18 04/27/19 08:50 Blood Pressure 101/60 04/27/19 08:50 O2 Sat by Pulse Oximetry (%) PE Gnl: WDWN, mildly anxious Mental status: nl Motor: nl Gait: nl Assessment: 04/27/19 13:05 1.Alcohol use disorder 2. Opioid use disorder Plan: 1.continue Librium withdrawal protocol 2. continue methadone withdrawal protocol 3. will hold on Ensure as BMI in normal range
--- NOTE | 2019-04-27 14:17 | CONSULT ---
[facility] Psychiatric Consult - Data Date of interview: 04/27/19 Admission source: [facility] Identifying data: Revisit to [facility] and admission to [address] [place] [address] for this 53 y/o male self-referred for detoxification treatment. RUCHI issues : heroin, nicotine. Patient is , no dependents, homeless (penitentiary), unemployed and supported on SSI benefits. Substance Abuse History: Discussed with the patient. Details in current [facility] report as follows : Smoking history: Current every day smoker. Have you smoked in the past 12 months: Yes. Aproximately how many cigarettes per day: 20. Hx Chewing Tobacco Use: No. Initiated information on smoking cessation: Yes. ' Breaking Loose' booklet given: 04/26/19. - Substances abused. Heroin. Substance route: Inhalation. Frequency: Daily. Amount used: 1 BUNDLE. Age of first use: 28. Date of last use: 04/25/19. Alcohol. Substance route: Oral. Frequency: Daily. Amount used: 16-16oz beers. Age of first use: 28. Date of last use: 04/25/19 Medical History: Patient endorses good general health. Psychiatric History: Patient denies history of psychiatric hospitalizations, OPD care or suicide attempts. Physical/Sexual Abuse/Trauma History: Patient denies. Additional Comment: Urine drug screen results: FEN-Fentanyl, MOP-Opiates, BZO- Benzodiazepines. Noted. Mental Status Exam - Mental Status Exam Alert and Oriented to: Time, Place, Person Cognitive Function: Good Patient Appearance: Well Groomed Mood: Hopeful, Euthymic Affect: Appropriate, Normal Range Patient Behavior: Appropriate, Cooperative Speech Pattern: Clear, Appropriate Voice Loudness: Normal Thought Process: Intact, Goal Oriented Thought Disorder: Not Present Hallucinations: Denies Suicidal Ideation: Denies Homicidal Ideation: Denies Insight/Judgement: Poor Sleep: Well Appetite: Good Gait/Station: Normal Psychiatric Findings - Problem List ([place] 1, 2,3) (1) Opioid dependence with withdrawal Current Visit: Yes Status: Acute (2) Alcohol use disorder Current Visit: Yes Status: Chronic (3) Nicotine dependence Current Visit: Yes Status: Chronic - Initial Treatment Plan Initial Treatment Plan: Psychoeducation. Sleep hygiene. Detoxification. AA/NA meetings. MAT services discussed with patient. Observation.
[2019-04-27] MEDS ORDERED: NICOTINE 21 MG/24 HOURS TOPICAL PATCH TD SCH (18:00)
[2019-04-27] MEDS ORDERED: NICOTINE 14 MG/24 HOURS TOPICAL PATCH TD SCH (18:00)
[2019-04-27] MEDS: MELATONIN 5 MG TABLETS PO PRN (22:20)
[2019-04-27] MEDS: THIAMINE HCL 100 MG TABLET (FP) PO SCH (22:20)
[2019-04-28] MEDS: chlordiazePOXIDE HCL 10 MG CAPSULE PO SCH ×3 (06:04→22:11)
[2019-04-28] MEDS ORDERED: METHADONE HCL 10 MG TABLET (FOR DETOX USE ONLY) PO ONE (10:00)
[2019-04-28] MEDS: NICOTINE 21 MG/24 HOURS TOPICAL PATCH TD SCH (10:22)
[2019-04-28] MEDS: PRENATAL VITAMINS W/ FOLIC ACID TABLET (FP) PO SCH (10:22)
--- NOTE | 2019-04-28 12:06 | PN ---
[facility] CIWA - CIWA Score Nausea/Vomitin-No Nausea/No Vomiting Muscle Tremors: None Anxiety: 1-Mildly Anxious Agitation: 0-Normal Activity Paroxysmal Sweats: 2 Orientation: 0-Oriented Tacttile Disturbances: 0-None Auditory Disturbances: 0-None Visual Disturbances: 0-None Headache: 0-None Present CIWA-Ar Total Score: 3 S COWS - Scale Resting Pulse: 0= [place] 80 or Below Sweatin= No chills or Flushing Restless Observation: 0= Sits Still Pupil Size: 0= Normal to Room Light Bone or Joint Aches: 1= Mild Discomfort Runny Nose/ Eye Tearin= None GI Upset > 30mins: 0= None Tremor Observation of Outstretched Hands: 0= None Yawning Observation: 0= None Anxiety or Irritability: 2=Irritable/Anxious Goose Flesh Skin: 0=Smooth Skin COWS Score: 3 [facility] Progress Note (SOAP) Subjective: c/o mild withdrawal symptoms. Objective: 04/28/19 12:01 Vital Signs 04/28/19 04/28/19 07:15 08:51 Temperature 98.4 F 97.9 F Pulse Rate 65 77 Respiratory 16 18 Rate Blood Pressure 104/63 117/74 Laboratory Last Values WBC 9.3 K/mm3 (4.0-10.0) 04/27/19 08:00 RBC 5.44 M/mm3 (4.00-5.60) 04/27/19 08:00 Hgb 16.0 GM/dL (11.7-16.9) 04/27/19 08:00 Hct 47.7 % (35.4-49) 04/27/19 08:00 MCV 87.6 fl (80-96) 04/27/19 08:00 MCH 29.5 pg (25.7-33.7) 04/27/19 08:00 MCHC 33.6 g/dl (32.0-35.9) 04/27/19 08:00 RDW 14.4 % (11.9-15.9) 04/27/19 08:00 Plt Count 207 K/MM3 (134-434) 04/27/19 08:00 MPV 10.1 fl (7.5-11.1) 04/27/19 08:00 Sodium 141 mmol/L (136-145) 04/27/19 08:00 Potassium 4.7 mmol/L (3.5-5.1) 04/27/19 08:00 Chloride 109 mmol/L (98-107) H 04/27/19 08:00 Carbon Dioxide 29 mmol/L (21-32) 04/27/19 08:00 Anion Gap 3 MMOL/L (8-16) L 04/27/19 08:00 BUN 22.6 mg/dL (7-18) H 04/27/19 08:00 Creatinine 1.4 mg/dL (0.55-1.3) H 04/27/19 08:00 Est GFR (CKD-EPI)AfAm 65.55 04/27/19 08:00 Est GFR (CKD-EPI)NonAf 56.56 04/27/19 08:00 Random Glucose 57 mg/dL (74-106) L 04/27/19 08:00 Calcium 8.6 mg/dL (8.5-10.1) 04/27/19 08:00 Total Bilirubin 0.7 mg/dL (0.2-1) 04/27/19 08:00 AST 30 U/L (15-37) 04/27/19 08:00 ALT 35 U/L (13-61) 04/27/19 08:00 Alkaline Phosphatase 87 U/L (45-117) 04/27/19 08:00 Total Protein 6.6 g/dl (6.4-8.2) 04/27/19 08:00 Albumin 3.8 g/dl (3.4-5.0) 04/27/19 08:00 RPR Titer Nonreactive (NONREACTIVE) 04/27/19 08:00 Labs noted. Assessment: 04/28/19 12:01 AOX3, in no respiratory distress. Full ROM, ambulating in the unit. Mild Withdrawal symptoms. For d/c tomorrow. Plan: continue detox. D/C in AM.
[2019-04-28] MEDS: THIAMINE HCL 100 MG TABLET (FP) PO SCH (22:11)
[2019-04-28] MEDS: MELATONIN 5 MG TABLETS PO PRN (22:11)
[2019-04-29] MEDS ORDERED: chlordiazePOXIDE HCL 10 MG CAPSULE PO ONE (05:00)
[2019-04-29] MEDS ORDERED: METHADONE HCL 5 MG TABLET (FOR DETOX USE ONLY) PO ONE (06:00)
[2019-04-29 06:55] VITALS: BP 107/63; PULSE 54; TEMP 97
[2019-04-29] MEDS: PRENATAL VITAMINS W/ FOLIC ACID TABLET (FP) PO SCH (10:25)
[2019-04-29] MEDS: NICOTINE 21 MG/24 HOURS TOPICAL PATCH TD SCH (10:25)
--- NOTE | 2019-04-29 12:26 | DS ---
[facility] Detox Discharge Summary Admission Date: 04/26/19 Discharge Date: 04/29/19 - History Present History: Alcohol Dependence, Opioid Dependence Additional Comments: 53 years old male admitted on 04/26/19 for alcohol and opiate withdrawal sx management treated with librium and methadone regiments Mr Mcadams has completed the librium and methadone regiments and tolerated well seen by psychiatrist no medical intervention alert oriented x 3 cardiac s1s2 regular rate rhythm respiratory clear lungs bilaterally on auscultation skin warm and dry Pertinent Past History: time for discharge 31 minutes - Physical Exam Results Vital Signs: Vital Signs Temperature 97.0 F L 04/29/19 05:27 Pulse Rate 54 L 04/29/19 05:27 Respiratory Rate 16 04/29/19 06:19 Blood Pressure 107/63 04/29/19 05:27 O2 Sat by Pulse Oximetry (%) Pertinent Admission Physical Exam Findings: alcohol and opiate withdrawal Laboratory Last Values WBC 9.3 K/mm3 (4.0-10.0) 04/27/19 08:00 RBC 5.44 M/mm3 (4.00-5.60) 04/27/19 08:00 Hgb 16.0 GM/dL (11.7-16.9) 04/27/19 08:00 Hct 47.7 % (35.4-49) 04/27/19 08:00 MCV 87.6 fl (80-96) 04/27/19 08:00 MCH 29.5 pg (25.7-33.7) 04/27/19 08:00 MCHC 33.6 g/dl (32.0-35.9) 04/27/19 08:00 RDW 14.4 % (11.9-15.9) 04/27/19 08:00 Plt Count 207 K/MM3 (134-434) 04/27/19 08:00 MPV 10.1 fl (7.5-11.1) 04/27/19 08:00 Sodium 141 mmol/L (136-145) 04/27/19 08:00 Potassium 4.7 mmol/L (3.5-5.1) 04/27/19 08:00 Chloride 109 mmol/L (98-107) H 04/27/19 08:00 Carbon Dioxide 29 mmol/L (21-32) 04/27/19 08:00 Anion Gap 3 MMOL/L (8-16) L 04/27/19 08:00 BUN 22.6 mg/dL (7-18) H 04/27/19 08:00 Creatinine 1.4 mg/dL (0.55-1.3) H 04/27/19 08:00 Est GFR (CKD-EPI)AfAm 65.55 04/27/19 08:00 Est GFR (CKD-EPI)NonAf 56.56 04/27/19 08:00 Random Glucose 57 mg/dL (74-106) L 04/27/19 08:00 Calcium 8.6 mg/dL (8.5-10.1) 04/27/19 08:00 Total Bilirubin 0.7 mg/dL (0.2-1) 04/27/19 08:00 AST 30 U/L (15-37) 04/27/19 08:00 ALT 35 U/L (13-61) 04/27/19 08:00 Alkaline Phosphatase 87 U/L (45-117) 04/27/19 08:00 Total Protein 6.6 g/dl (6.4-8.2) 04/27/19 08:00 Albumin 3.8 g/dl (3.4-5.0) 04/27/19 08:00 RPR Titer Nonreactive (NONREACTIVE) 04/27/19 08:00 lab noted - Treatment Hospital Course: Detox Protocol Followed, Detoxed Safely, Responded well, Discharged Condition Good, Rehab Referral Accepted Patient has Accepted [facility] Ref[facility] - Medication Discharge Medications: Ambulatory Orders NK [No Known Home Medication] 01/30/19 - Diagnosis (1) Opioid dependence with withdrawal Status: Acute (2) Alcohol use disorder Status: Acute (3) Nicotine dependence Status: Acute Qualifiers: Nicotine product type: cigarettes Substance use status: in withdrawal Qualified Code(s): F17.213 - Nicotine dependence, cigarettes, with withdrawal - AMA Did Patient Leave Against Medical Advice: No CIWA Score - CIWA Score Nausea/Vomitin-No Nausea/No Vomiting Muscle Tremors: None Anxiety: 0-No Anxiety, at Ease Agitation: 0-Normal Activity Paroxysmal Sweats: 1-Minimal Palms Moist Orientation: 0-Oriented Tacttile Disturbances: 0-None Auditory Disturbances: 0-None Visual Disturbances: 0-None Headache: 0-None Present CIWA-Ar Total Score: 1 COWS (PN) - Opiate Withdrawal Resting Pulse: 0= [place] 80 or Below Sweatin= No chills or Flushing Restless Observation: 0= Sits Still Pupil Size: 0= Normal to Room Light Bone or Joint Aches: 0= None Runny Nose/ Eye Tearin= None GI Upset > 30mins: 0= None Tremor Observation of Outstretched Hands: 1= Tremor [place], Not Seen Yawning Observation: 0= None Anxiety or Irritability: 0= None Goose Flesh Skin: 0=Smooth Skin COWS Score: 1
== END 2019-04-29 11:04 | disposition home or self-care (01) | DRG 773 ==
LOC: YASAS 14:48 → Y3N 17:37
PROVIDERS: ADMIT Allergy & Immunology; ATTEND Allergy & Immunology
PROC: HZ2ZZZZ Detoxification Services for Substance Abuse Treatment (ICD-10-PCS; principal; 2019-04-26)
DX: F10.230 Alcohol dependence with withdrawal, uncomplicated (principal); F11.23 Opioid dependence with withdrawal; F17.213 Nicotine dependence, cigarettes, with withdrawal
CPT/HCPCS: 36415; 80053; 85027; 86593

== ENCOUNTER 2023-05-09 14:30 | Inpatient (IN) | payer OTHER ==
[2023-05-09 14:47] VITALS: BMI 19.7
[2023-05-09] MEDS ORDERED: BENZOCAINE/MENTHOL (CHLORASEPTIC ) LOZENGE MM PRN (15:33)
[2023-05-09] MEDS ORDERED: LOPERAMIDE HCL 2 MG CAPSULE PO PRN (15:33)
[2023-05-09] MEDS ORDERED: NALOXONE HCL 0.4 MG/ML VIAL IM PRN (15:33)
[2023-05-09] MEDS ORDERED: BENZONATATE 200 MG CAPSULE PO PRN (15:33)
[2023-05-09] MEDS ORDERED: POLYETHYLENE GLYCOL (HEALTHYLAX) 3350 17 GM PACKET PO PRN (15:33)
[2023-05-09] MEDS ORDERED: IBUPROFEN 400 MG TABLET (FP) PO PRN (15:33)
[2023-05-09] MEDS ORDERED: ACETAMINOPHEN 325 MG TABLET (FP) PO PRN (15:33)
[2023-05-09] MEDS ORDERED: DICYCLOMINE HCL 10 MG CAPSULE PO PRN (15:33)
[2023-05-09] MEDS ORDERED: IBUPROFEN 600 MG TABLET (FP) PO PRN (15:33)
[2023-05-09] MEDS ORDERED: NALOXONE HCL (KLOXXADO) 8 MG SPRAY NS PRN (15:33)
[2023-05-09] MEDS ORDERED: ONDANSETRON *ODT* 4 MG TABLET SL PRN (15:33)
[2023-05-09] MEDS ORDERED: BISMUTH SUBSALICYLATE 262 MG/15 ML BTL PO PRN (15:33)
[2023-05-09] MEDS ORDERED: guaiFENesin 600 MG TABLET.ER (FP) PO PRN (15:33)
[2023-05-09] MEDS ORDERED: MAG HYDROX/AL HYDROX/SIMETH 30 ML UNIT-DOSE CUP PO PRN (15:33)
[2023-05-09] MEDS ORDERED: MAGNESIUM HYDROX 2400MG/30ML ORAL SUSPENSION 30 ML CUP PO PRN (15:33)
[2023-05-09] MEDS ORDERED: NICOTINE 14 MG/24 HOURS TOPICAL PATCH TD ONE (16:01)
[2023-05-09] MEDS: methaDONE HCL 10 MG TABLET (FOR DETOX USE ONLY) PO ONE (16:01)
[2023-05-09] MEDS ORDERED: PRENATAL VITAMINS W/ FOLIC ACID TABLET (FP) PO ONE (16:01)
[2023-05-09] MEDS ORDERED: methaDONE HCL 10 MG TABLET (FOR DETOX USE ONLY) ONE (16:01)
[2023-05-09] MEDS: PRENATAL VITAMINS W/ FOLIC ACID TABLET (FP) PO SCH (16:01)
[2023-05-09] MEDS: NICOTINE 14 MG/24 HOURS TOPICAL PATCH TD SCH (16:01)
[2023-05-09] MEDS: diazePAM 5 MG TABLET PO SCH (17:39)
[2023-05-09] MEDS: THIAMINE HCL 100 MG TABLET (FP) PO SCH (22:20)
[2023-05-09] MEDS: METHOCARBAMOL 500 MG TABLET PO PRN (22:20)
[2023-05-09] MEDS: MELATONIN 5 MG TABLETS PO SCH (22:21)
[2023-05-10] MEDS: hydrOXYzine PAMOATE 25 MG CAPSULE (FP) PO PRN (09:27)
[2023-05-10 12:17] LABS: HEMATOCRIT 45.1 % (35.4-49); HEMOGLOBIN 14.7 GM/dL (11.7-16.9); MCH 28.3 pg (25.7-33.7); MCHC 32.6 g/dl (32.0-35.9); MEAN CELL VOLUME 86.9 fl (80-96); MEAN PLT VOLUME 9.1 fl (7.5-11.1); PLATELET COUNT 206 10^3/uL (134-434); RBC 5.19 M/mm3 (4.00-5.60); RDW 16.9 % (11.9-15.9); WHITE BLOOD COUNT 4.6 K/mm3 (4.0-10.0)
[2023-05-10 12:19] LABS: CHLORIDE 110 mmol/L (98-107); POTASSIUM 3.9 mmol/L (3.5-5.1); SODIUM 141 mmol/L (136-145)
[2023-05-10 12:30] LABS: CALCIUM 8.5 mg/dL (8.5-10.1)
[2023-05-10 12:31] LABS: ALBUMIN 2.9 g/dl (3.4-5.0); ANION GAP 5 mmol/L (4-13); BLOOD UREA NITROGEN 16.6 mg/dL (7-18); CO2 27 mmol/L (21-32); GLUCOSE,RANDOM 82 mg/dL (74-106)
[2023-05-10 12:33] LABS: CREATININE 0.9 mg/dL (0.55-1.3); SGOT/AST 34 U/L (15-37); SGPT/ALT 66 U/L (13-61)
[2023-05-10 12:35] LABS: TOT PROT 5.6 g/dl (6.4-8.2)
[2023-05-10 12:36] LABS: BILIRUBIN,TOTAL 0.4 mg/dL (0.2-1)
[2023-05-10 12:37] LABS: ALK PHOS 65 U/L (45-117)
[2023-05-10] MEDS: LACTULOSE 20 GM/30 ML UDC (FOR ORAL USE ONLY) PO SCH (22:16)
[2023-05-11] MEDS: diazePAM 5 MG TABLET PO SCH (05:06)
[2023-05-11] MEDS: methaDONE HCL 10 MG TABLET (FOR DETOX USE ONLY) PO ONE (09:28)
[2023-05-11] MEDS: cloNIDine HCL 0.1 MG TABLET PO PRN (09:28)
[2023-05-11] MEDS: diazePAM 5 MG TABLET PO PRN (17:24)
[2023-05-12] MEDS: diazePAM 5 MG TABLET PO SCH (05:25)
[2023-05-13] MEDS: diazePAM 5 MG TABLET PO ONE (05:21)
[2023-05-13] MEDS: methaDONE HCL 10 MG TABLET (FOR DETOX USE ONLY) PO ONE (09:32)
[2023-05-14 09:29] VITALS: BP 129/75; PULSE 85; RESP 17; TEMP 97.8
== END 2023-05-14 10:10 | disposition home or self-care (01) | DRG 773 ==
LOC: YASAS 14:30 → Y6N 15:59
PROVIDERS: ADMIT Allergy & Immunology; ATTEND Surgery
PROC: HZ2ZZZZ Detoxification Services for Substance Abuse Treatment (ICD-10-PCS; principal; 2023-05-09)
DX: F11.23 Opioid dependence with withdrawal (principal); F10.230 Alcohol dependence with withdrawal, uncomplicated; F17.213 Nicotine dependence, cigarettes, with withdrawal; M41.9 Scoliosis, unspecified; R79.89 Other specified abnormal findings of blood chemistry; Z59.01 Sheltered homelessness
CPT/HCPCS: 36415; 71046-TC-FY; 80053; 80305; 80307; 82140; 85027; 86780; 87635; 87811; 93005; 93010

== ENCOUNTER 2023-07-19 10:15 | Inpatient (IN) | payer OTHER ==
[2023-07-19 10:54] VITALS: BMI 21.7
[2023-07-19] MEDS ORDERED: LOPERAMIDE HCL 2 MG CAPSULE PO PRN (11:13)
[2023-07-19] MEDS ORDERED: BENZOCAINE/MENTHOL (CHLORASEPTIC ) LOZENGE MM PRN (11:13)
[2023-07-19] MEDS ORDERED: POLYETHYLENE GLYCOL (HEALTHYLAX) 3350 17 GM PACKET PO PRN (11:13)
[2023-07-19] MEDS ORDERED: IBUPROFEN 600 MG TABLET (FP) PO PRN (11:13)
[2023-07-19] MEDS ORDERED: ONDANSETRON *ODT* 4 MG TABLET SL PRN (11:13)
[2023-07-19] MEDS ORDERED: NALOXONE HCL (KLOXXADO) 8 MG SPRAY NS PRN (11:13)
[2023-07-19] MEDS ORDERED: MAGNESIUM HYDROX 2400MG/30ML ORAL SUSPENSION 30 ML CUP PO PRN (11:13)
[2023-07-19] MEDS ORDERED: guaiFENesin 600 MG TABLET.ER (FP) PO PRN (11:13)
[2023-07-19] MEDS ORDERED: IBUPROFEN 400 MG TABLET (FP) PO PRN (11:13)
[2023-07-19] MEDS ORDERED: BENZONATATE 200 MG CAPSULE PO PRN (11:13)
[2023-07-19] MEDS ORDERED: MAG HYDROX/AL HYDROX/SIMETH 30 ML UNIT-DOSE CUP PO PRN (11:13)
[2023-07-19] MEDS ORDERED: NALOXONE HCL 0.4 MG/ML VIAL IM PRN (11:13)
[2023-07-19] MEDS ORDERED: DICYCLOMINE HCL 10 MG CAPSULE PO PRN (11:13)
[2023-07-19] MEDS ORDERED: ACETAMINOPHEN 325 MG TABLET (FP) PO PRN (11:13)
[2023-07-19] MEDS ORDERED: diazePAM 5 MG TABLET PO PRN (11:13)
[2023-07-19] MEDS ORDERED: BISMUTH SUBSALICYLATE 262 MG/15 ML BTL PO PRN (11:13)
[2023-07-19] MEDS ORDERED: diazePAM 5 MG TABLET ONE (11:47)
[2023-07-19] MEDS ORDERED: methaDONE HCL 10 MG TABLET (FOR DETOX USE ONLY) ONE (11:47)
[2023-07-19] MEDS: diazePAM 5 MG TABLET PO SCH (11:53)
[2023-07-19] MEDS: methaDONE HCL 10 MG TABLET PO ONE (11:56)
[2023-07-19] MEDS ORDERED: PRENATAL VITAMINS W/ FOLIC ACID TABLET (FP) PO ONE (12:04)
[2023-07-19] MEDS ORDERED: NICOTINE 14 MG/24 HOURS TOPICAL PATCH TD ONE (12:04)
[2023-07-19] MEDS: NICOTINE 14 MG/24 HOURS TOPICAL PATCH TD SCH (12:07)
[2023-07-19] MEDS: PRENATAL VITAMINS W/ FOLIC ACID TABLET (FP) PO SCH (12:07)
[2023-07-19] MEDS: cloNIDine HCL 0.1 MG TABLET PO SCH (13:44)
[2023-07-19] MEDS: methaDONE HCL 10 MG TABLET PO PRN (13:45)
[2023-07-19] MEDS: MELATONIN 5 MG TABLETS PO SCH (21:56)
[2023-07-19] MEDS: THIAMINE 100 MG TABLET PO SCH (21:57)
[2023-07-20] MEDS: methaDONE 40 MG, methaDONE 10 MG PO ONE (10:21)
[2023-07-20 12:07] LABS: POTASSIUM 4.6 mmol/L (3.5-5.1)
[2023-07-20 12:09] LABS: CALCIUM 9.3 mg/dL (8.5-10.1)
[2023-07-20 12:10] LABS: ALBUMIN 3.1 g/dl (3.4-5.0); BLOOD UREA NITROGEN 18.5 mg/dL (7-18)
[2023-07-20 12:13] LABS: CREATININE 0.9 mg/dL (0.55-1.3)
[2023-07-20 12:14] LABS: TOT PROT 6.4 g/dl (6.4-8.2)
[2023-07-20 12:15] LABS: BILIRUBIN,TOTAL 0.5 mg/dL (0.2-1); HEMATOCRIT 46.9 % (35.4-49); HEMOGLOBIN 15.5 GM/dL (11.7-16.9); MCH 29.5 pg (25.7-33.7); MCHC 33.1 g/dl (32.0-35.9); MEAN CELL VOLUME 89.3 fl (80-96); MEAN PLT VOLUME 10.3 fl (7.5-11.1); PLATELET COUNT 265 10^3/uL (134-434); RBC 5.25 M/mm3 (4.00-5.60); RDW 15.2 % (11.9-15.9); WHITE BLOOD COUNT 6.9 K/mm3 (4.0-10.0)
[2023-07-21] MEDS ORDERED: cloNIDine HCL 0.1 MG TABLET PO PRN
[2023-07-21] MEDS: diazePAM 5 MG TABLET PO SCH (05:31)
[2023-07-21] MEDS: methaDONE 40 MG, methaDONE 20 MG PO ONE (10:05)
[2023-07-21] MEDS: METHOCARBAMOL 500 MG TABLET PO PRN (22:25)
[2023-07-22] MEDS: diazePAM 5 MG TABLET PO SCH (05:42)
[2023-07-22] MEDS: methaDONE 40 MG, methaDONE 30 MG PO ONE (10:27)
[2023-07-22] MEDS: hydrOXYzine PAMOATE 25 MG CAPSULE (FP) PO PRN (21:33)
[2023-07-23] MEDS: diazePAM 5 MG TABLET PO ONE (05:18)
[2023-07-23] MEDS: methaDONE HCL 40 MG DISPERSABLE TABLET PO ONE (10:04)
[2023-07-24] MEDS: methaDONE 80 MG, methaDONE 10 MG PO ONE (09:29)
[2023-07-25] MEDS ORDERED: methaDONE HCL 10 MG TABLET PO ONE (10:27)
[2023-07-25] MEDS: methaDONE 80 MG, methaDONE 10 MG PO ONE (11:04)
[2023-07-25] MEDS: LACTULOSE 20 GM/30 ML UDC (FOR ORAL USE ONLY) PO SCH (13:45)
[2023-07-25 16:55] VITALS: BP 131/66; PULSE 78; RESP 18; TEMP 97.7
== END 2023-07-25 21:36 | disposition other institution (70) | DRG 773 ==
LOC: YASAS 10:15 → Y3N 11:44
PROVIDERS: ADMIT Allergy & Immunology; ATTEND Surgery
PROC: HZ2ZZZZ Detoxification Services for Substance Abuse Treatment (ICD-10-PCS; principal; 2023-07-19)
DX: F10.230 Alcohol dependence with withdrawal, uncomplicated (principal); F11.20 Opioid dependence, uncomplicated; F17.213 Nicotine dependence, cigarettes, with withdrawal; E72.20 Disorder of urea cycle metabolism, unspecified; Z87.39 Personal history of other diseases of the musculoskeletal system and connective tissue
CPT/HCPCS: 36415; 71046-TC-FY; 80053; 80305; 80307; 82140; 85027; 86780; 93005; 93010

== ENCOUNTER 2023-07-25 15:13 | Inpatient (IN) | payer OTHER ==
[2023-07-25] MEDS ORDERED: POLYETHYLENE GLYCOL (HEALTHYLAX) 3350 17 GM PACKET PO PRN (16:46)
[2023-07-25] MEDS ORDERED: MAGNESIUM HYDROX 2400MG/30ML ORAL SUSPENSION 30 ML CUP PO PRN (16:46)
[2023-07-25] MEDS ORDERED: NALOXONE (NYS OPIOID OVERDOSE PROGRAM) 4 MG/0.1 ML SPRAY NS PRN (16:46)
[2023-07-25] MEDS ORDERED: NALOXONE HCL 0.4 MG/ML VIAL IVPUSH PRN (16:46)
[2023-07-25] MEDS ORDERED: ACETAMINOPHEN 325 MG TABLET (FP) PO PRN (16:46)
[2023-07-25] MEDS ORDERED: METHOCARBAMOL 500 MG TABLET PO PRN (16:46)
[2023-07-25] MEDS ORDERED: BENZOCAINE/MENTHOL (CHLORASEPTIC ) LOZENGE MM PRN (16:46)
[2023-07-25] MEDS ORDERED: LOPERAMIDE HCL 2 MG CAPSULE PO PRN (16:46)
[2023-07-25] MEDS ORDERED: guaiFENesin 600 MG TABLET.ER (FP) PO PRN (16:46)
[2023-07-25] MEDS ORDERED: BENZONATATE 200 MG CAPSULE PO PRN (16:46)
[2023-07-25] MEDS ORDERED: MAG HYDROX/AL HYDROX/SIMETH 30 ML UNIT-DOSE CUP PO PRN (16:46)
[2023-07-25] MEDS ORDERED: IBUPROFEN 400 MG TABLET (FP) PO PRN (16:46)
[2023-07-25] MEDS: MELATONIN 5 MG TABLETS PO SCH (22:58)
[2023-07-25] MEDS: THIAMINE 100 MG TABLET PO SCH (22:58)
[2023-07-26] MEDS: PRENATAL VITAMINS W/ FOLIC ACID TABLET (FP) PO SCH (09:08)
[2023-07-26] MEDS: methaDONE 80 MG, methaDONE 10 MG PO ONE (09:08)
[2023-07-26] MEDS ORDERED: methaDONE HCL 10 MG TABLET PO ONE (10:00)
[2023-07-27] MEDS ORDERED: methaDONE HCL 10 MG TABLET PO ONE (08:30)
[2023-07-27] MEDS: methaDONE 80 MG, methaDONE 10 MG PO ONE (08:40)
[2023-07-28] MEDS ORDERED: methaDONE HCL 10 MG TABLET PO SCH (06:00)
[2023-07-28] MEDS ORDERED: NICOTINE POLACRILEX 4 MG GUM BUC PRN (09:22)
[2023-07-28] MEDS: NICOTINE 21 MG/24 HOURS TOPICAL PATCH TD SCH (10:33)
[2023-07-28] MEDS: MELATONIN 5 MG TABLETS PO SCH (21:29)
[2023-08-03] MEDS: LIDOCAINE 4% PATCH TP SCH (17:21)
[2023-08-03] MEDS: METHYL SALICYLATE/MENTHOL OINT 30 GM TUBE TP SCH (21:19)
[2023-08-03] MEDS: GABAPENTIN 100 MG CAPSULE PO SCH (21:19)
[2023-08-03] MEDS: LIDOCAINE PATCH REMOVAL MC SCH (21:19)
[2023-08-04] MEDS: AMMONIUM LACTATE 12% LOTION 225 GM BOTTLE TP PRN (13:34)
[2023-08-05] MEDS: IBUPROFEN 600 MG TABLET (FP) PO PRN (21:25)
[2023-08-10] MEDS: GABAPENTIN 100 MG CAPSULE PO SCH (16:45)
[2023-08-16 06:59] VITALS: BP 124/70; PULSE 84; RESP 16; TEMP 97.8
== END 2023-08-16 09:29 | disposition home or self-care (01) | DRG 772 ==
LOC: YASAS 15:13 → Y3NR 15:14 → Y3W 07-27 12:41
PROVIDERS: ADMIT Allergy & Immunology; ATTEND Psychiatry & Neurology Pain Medicine
PROC: HZ42ZZZ Group Counseling for Substance Abuse Treatment, Cognitive-Behavioral (ICD-10-PCS; principal; 2023-07-25)
DX: F11.20 Opioid dependence, uncomplicated (principal); F10.20 Alcohol dependence, uncomplicated; F17.210 Nicotine dependence, cigarettes, uncomplicated; M41.9 Scoliosis, unspecified; R21 Rash and other nonspecific skin eruption; Z59.00 Homelessness unspecified
CPT/HCPCS: 82140; 87811